=== PATIENT | male | born 1990 | race Caucasian/White ===

== ENCOUNTER 2017-10-28 01:57 | Emergency (ER) | payer OTHER ==
[~2017-10-28] VITALS: Ht 188 cm; Wt 79.2 kg
[~2017-10-28 01:57] MED LIST: FLOMAX0.4 MG PO; NAPROXEN500 MG PO; PROTONIX40 MG PO; ZOFRAN ODT4 MG PO
[2017-10-28 02:37] LABS: HEMATOCRIT 43.4 % (38.0-50.0); MCH 31.3 PG (29.0-34.0); MCV 89.5 FL (86-99); MEAN PLAT.VOLUME 9.9 uM^3 (9.0-12.4); PLATELET COUNT 224 K/uL (156-360); RBC DIS.WIDTH-CV 11.7 % (11.8-14.6); RBC DIS.WIDTH-SD 38.2 % (39-53); RED BLOOD COUNT 4.85 M/uL (4.00-5.50)
[2017-10-28 02:49] LABS: AMPHETAMINE NEGATIVE (500 ng/mL); BENZODIAZEPINES NEGATIVE (150 ng/mL); COCAINE NEGATIVE (150 ng/mL); METHAMPHETAMINE NEGATIVE (500 ng/mL); OPIATES (MORPHINE) NEGATIVE (100 ng/mL); PHENCYCLIDINE NEGATIVE (25 ng/mL); THC CANNABINOIDS NEGATIVE (50 ng/mL)
[2017-10-28 02:50] LABS: BARBITURATES NEGATIVE (200 ng/mL); INTERNAL CONTROLS VALID? YES; METHADONE NEGATIVE (200 ng/mL); OXYCODONE NEGATIVE (100 ng/mL); PROPOXYPHENE NEGATIVE (300 ng/mL); TRICYCLIC ANTIDEPRESSANTS NEGATIVE (300 ng/mL)
[2017-10-28 02:56] LABS: CHLORIDE 104 mEq/L (99-109); POTASSIUM 4.3 mEq/L (3.7-5.4); SODIUM 138 mEq/L (136-147)
[2017-10-28 02:58] LABS: GLUCOSE 100 mg/dL (70-99)
[2017-10-28 02:59] LABS: ANION GAP 10 MEQ/L (2-14)
[2017-10-28 03:01] LABS: SERUM ETHYL ALCOHOL < 10 mg/dL
[2017-10-28 03:02] LABS: GFR ESTIMATE (CALCULATED) > 59 mL/min/ (58.99-99999); UREA NITROGEN (BUN) 12 mg/dL (9-23)
[2017-10-28 05:15] VITALS: BP 152/98
== END 2017-10-28 05:16 | disposition home or self-care (01) ==
LOC: EME 01:57
DX: F32.9 Major depressive disorder, single episode, unspecified (principal); F10.10 Alcohol abuse, uncomplicated; Y90.0 Blood alcohol level of less than 20 mg/100 ml; Z81.8 Family history of other mental and behavioral disorders; I10 Essential (primary) hypertension; F90.9 Attention-deficit hyperactivity disorder, unspecified type; F17.200 Nicotine dependence, unspecified, uncomplicated
CPT/HCPCS: 80048; 85027; 90839; 99281; 99283; G0480